=== PATIENT | female | born 1990 | race Caucasian/White ===

== ENCOUNTER 2017-02-11 20:17 | Emergency (ER) | payer MEDICAID ==
--- NOTE | 2017-02-11 20:20 | EDPHY ---
H & P HPI/ROS: HPI CHIEF COMPLAINT: Left shoulder pain, worse with movement. HISTORY OF PRESENT ILLNESS: This patient is a 18-year-old female otherwise healthy no significant medical history she presents emergency room with 24 hours left shoulder pain. She does not recall an injury but she thinks she may have slept on it wrong. She has pain with range of motion of the left shoulder. Especially with abduction of the arm. She is otherwise neurovascularly intact. No fever. No chest pain no shortness of breath. No lymphadenopathy or swelling. No arm swelling. Pain is located anterior left shoulder. Worse with movement she has not take any pain medicine for this. She decided come the emergency room for evaluation. No other injuries. Past Medical History: No significant medical history Past Surgical History: No significant surgical history Social History: Denies daily use drugs alcohol tobacco products Family History: Noncontributory ROS REVIEW OF SYSTEMS: A comprehensive 10 point review of systems is otherwise negative aside from elements mentioned in the history of present illness. Exam Constitutional triage nursing summary reviewed, vital signs reviewed, awake/ alert. Eyes normal conjunctivae and sclera, EOMI, PERRLA. HENT normal inspection, atraumatic, moist mucus membranes, no epistaxis, neck supple/ no meningismus, no raccoon eyes. Respiratory clear to auscultation bilaterally, normal breath sounds, no respiratory distress, no wheezing. Cardiovascular rate normal, regular rhythm, no murmur, no edema, distal pulses normal. Gastrointestinal soft, non-tender, no rebound, no guarding, normal bowel sounds, no distension, no pulsatile mass. Genitourinary no CVA tenderness. Musculoskeletal left arm: Neurovascular intact. Good radial pulse. Good cap refill. Full range of motion of the left arm. However with abduction left arm against resistance she has left lateral shoulder pain. Axillary nerves intact. No swelling of the arm. No lymphedema. No adenopathy. No rash. no midline vertebral tenderness, full range of motion, no calf swelling, no tenderness of extremities, no meningismus, good pulses, neurovascularly intact. Skin pink, warm, & dry, no rash, skin atraumatic. Neurologic awake, alert and oriented x 3, AAOx3, moves all 4 extremities equally, motor intact, sensory intact, CN II-XII intact, normal cerebellar, normal vision, normal speech. Psychiatric normal mood/affect. Heme/Lymph/Immune no lymphadenopathy. Differential Diagnosis: Includes but is not limited to in a particular order, shoulder strain, shoulder sprain, rotator cuff injury, bony abnormality Medical Decision Making: Plan for this patient x-ray left shoulder. Ibuprofen. Re-evaluation: ED x-ray left shoulder: Negative for acute disease or fracture. Image interpreted by myself. [id number]: X-ray reviewed. No fracture. No bony abnormality. Recommend ice, anti- inflammatory pain med. Follow up primary care doctor return to ER if worse. Source: Patient Constitutional: Initial Vital Signs Temperature (C) 36.5 C 02/11/17 20:22 Heart Rate 86 02/11/17 20:22 Respiratory Rate 14 02/11/17 20:22 Blood Pressure 125/77 H 02/11/17 20:22 O2 Sat (%) 97 02/11/17 20:22 O2 Delivery Mode Room Air Allergies/Adverse Reactions: No Known Allergies Allergy (Unverified 02/11/17 20:22) Home Medications: Medication Instructions Recorded NK [No Known Home Meds] 02/11/17 Medical Decision Making - Data Points Medications Given: Discontinued Medications Ibuprofen (Motrin) 800 mg PO EDNOW ONE Stop: 02/11/17 20:34 Last Admin: 02/11/17 20:39 Dose: 800 mg Departure - Departure Disposition: Home, Routine, Self-Care Clinical Impression: Left shoulder strain Qualifiers: Encounter type: initial encounter Qualified Code(s): S46.912A - Strain of unspecified muscle, fascia and tendon at shoulder and upper arm level, left arm , initial encounter Condition: Good Instructions: Arthralgia (ED), Shoulder Pain (ED) Additional Instructions: 1. Ice your shoulder. 2. Take anti-inflammatory pain medicine for pain control Tylenol Motrin. 3. This should get better over the next 72 hours. Return emergency room if there is worsening symptoms questions or concerns. Referrals: NONE *PRIMARY CARE P,. [Primary Care Provider] - As per Instructions
[2017-02-11 20:27] VITALS: BP 125/77; PULSE 86; RESP 14; TEMP 97.7; O2SAT 97
[2017-02-11] MEDS ORDERED: IBUPROFEN 200 MG TAB PO ONE (20:33)
== END 2017-02-11 21:34 | disposition home or self-care (01) ==
LOC: CED 20:17
DX: S46.912A Strain of unspecified muscle, fascia and tendon at shoulder and upper arm level, left arm, initial encounter (principal); X58.XXXA Exposure to other specified factors, initial encounter
CPT/HCPCS: 73030-PO

== ENCOUNTER 2017-05-20 07:00 | Emergency (ER) | payer MEDICAID ==
[2017-05-20] MEDS ORDERED: NS 1,000 ML IV ONE (07:07)
[2017-05-20 07:12] VITALS: RESP 18; TEMP 97.5
--- NOTE | 2017-05-20 07:21 | EDPHY ---
H & P Stated Complaint: N/V STARTED THIS AM, VX4, DENIES ABD PAIN Time Seen by Provider: 05/20/17 07:04 HPI/ROS: This patient arrives by private vehicle for evaluation of vomiting and crampy abdominal discomfort. Her symptoms started at 3:00 a.m. this morning with vomiting and concurrent onset of generalized abdominal cramping. She has vomited 4 times since onset with yellow appearing emesis and ongoing nausea currently. She reports that the generalized abdominal cramping is 3/10 in intensity. She has been unable tolerate p. o. fluids since the onset of vomiting. She had 1 episode of diarrhea described as loose and watery this morning. The symptoms follow a one-week history of coryza and occasional cough. She reports that the coryza and cough is improving in nearly resolved. ROS: No fevers or chills. No fatigue. No other constitutional complaints HEENT: No sore throat. No ear pain. No sinus pain. Pulmonary: Her mild cough is rare and dry with no sputum production, or hemoptysis. No shortness of breath. No pleuritic pain. Cardiovascular: No lightheadedness. No chest pain GI: No abdominal bloating. No hematemesis or coffee-ground emesis. No bloody stools. : Last menstrual period was normal timing last but lasted longer than usual. No dysuria, frequency urgency. No vaginal discharge. Integumentary: No skin rash 10 point ROS is otherwise negative. 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 - Physical Exam Exam: General Appearance: Alert, no distress. Eyes: Pupils equal and round no pallor or injection. ENT, Mouth: Mucous membranes dry Respiratory: There are no retractions, lungs are clear to auscultation. Cardiovascular: Regular rate and rhythm. No murmur gallop or rub Gastrointestinal: Normoactive, soft, nontender. No organomegaly Back: No CVA tenderness Neurological: GCS 15 with no focal deficits Skin: Warm and dry, no rashes. Musculoskeletal: Neck is supple nontender. Extremities are symmetrical, full range of motion. Psychiatric: Mood and affect normal DIFFERENTIAL DIAGNOSIS: After history and physical exam differential diagnosis was considered for likely a viral gastroenteritis given concurrent mild URI symptoms. , ectopic , urinary tract infection, food poisoning Constitutional: Initial Vital Signs Temperature (C) 36.4 C 05/20/17 07:09 Heart Rate 95 05/20/17 07:09 Respiratory Rate 18 05/20/17 07:09 Blood Pressure 147/94 H 05/20/17 07:09 O2 Sat (%) 95 05/20/17 07:09 O2 Delivery Mode Room Air Allergies/Adverse Reactions: No Known Allergies Allergy (Unverified 05/20/17 07:07) Home Medications: Medication Instructions Recorded Cephalexin [Keflex (*)] 500 mg PO QID #28 cap 05/20/17 Ondansetron Odt [Zofran Odt] 4 - 8 mg PO Q4PRN PRN #4 tab 05/20/17 Medical Decision Making ED Course/Re-evaluation: IV normal saline bolus Zofran IV Zofran Repeated x1 with further relief of nausea. She tolerated p.o. intake thereafter without emesis. A review of labs reveals mild leukocytosis, normal metabolic panel, negative and urinalysis consistent with UTI. Discussion: This patient may have early pyelonephritis given UTI, vomiting and mild leukocytosis. I counseled her regarding this. Other possibilities in the differential diagnosis would be viral gastroenteritis complicated by cystitis. I offered the patient IV antibiotics given recent vomiting and other findings. Patient prefers to try oral Keflex given her symptomatic improvement in desire to proceed home. She is not manifest septic physiology or have any other red flag findings after treatment so think this is reasonable approach. She is discharged home with normal vitals feeling improved. Will treat her with Keflex for 7 days. Zofran in addition if needed for any ongoing nausea or vomiting. I provided contact information for an outpatient primary physician ( on-call) for her to follow up with and the patient understands need to return emergency department should she have any worsening of her symptoms despite the treatment plan - Data Points Laboratory Results: Laboratory Results 05/20/17 07:15 05/20/17 07:15 05/20/17 05/20/17 05/20/17 08:05 07:15 07:15 WBC RBC Hgb Hct MCV MCH MCHC RDW Plt Count MPV Neut % (Auto) Lymph % (Auto) Tillman % (Auto) Eos % (Auto) Baso % (Auto) Nucleat RBC Rel Count Absolute Neuts (auto) Absolute Lymphs (auto) Absolute Monos (auto) Absolute Eos (auto) Absolute Basos (auto) Absolute Nucleated RBC Immature Gran % Immature Gran # Sodium 145 mEq/L H mEq/L (134-144) Potassium 4.2 mEq/L mEq/L (3.5-5.2) Chloride 105 mEq/L mEq/L (97-110) Carbon Dioxide 22 mEq/l mEq/l (22-31) Anion Gap 18 mEq/L H mEq/L (8-16) BUN 14 mg/dL mg/dL (7-23) Creatinine 0.6 mg/dL mg/dL (0.6-1.0) Estimated GFR > 60 Glucose 98 mg/dL mg/dL (70-100) Calcium 9.2 mg/dL mg/dL (8.5-10.4) Beta HCG, Qual NEGATIVE Urine Color YELLOW Urine Appearance CLEAR Urine pH 8.5 H (5.0-7.5) Ur Specific Fountain 1.015 (1.002-1.030) Urine Protein 1+ H (NEGATIVE) Urine Ketones NEGATIVE (NEGATIVE) Urine Blood NEGATIVE (NEGATIVE) Urine Nitrate NEGATIVE (NEGATIVE) Urine Bilirubin NEGATIVE (NEGATIVE) Urine Urobilinogen 0.2 EU EU (0.2-1.0) Ur Leukocyte Esterase TRACE H (NEGATIVE) Urine RBC 3-5 /hpf H /hpf (0-3) Urine WBC 5-10 /hpf H /hpf (0-3) Ur Epithelial Cells 2+ /lpf H /lpf (NONE-1+) Urine Bacteria 2+ /hpf H /hpf (NONE SEEN) Urine Mucus 2+ /lpf H /lpf (NONE-1+) Urine Glucose NEGATIVE (NEGATIVE) 05/20/17 07:15 WBC 11.51 10^3/uL H 10^3/uL (3.80-9.50) RBC 4.42 10^6/uL 10^6/uL (4.18-5.33) Hgb 13.9 g/dL g/dL (12.6-16.3) Hct 40.2 % % (38.0-47.0) MCV 91.0 fL fL (81.5-99.8) MCH 31.4 pg pg (27.9-34.1) MCHC 34.6 g/dL g/dL (32.4-36.7) RDW 12.3 % % (11.5-15.2) Plt Count 234 10^3/uL 10^3/uL (150-400) MPV 11.3 fL fL (8.7-11.7) Neut % (Auto) 69.4 % % (39.3-74.2) Lymph % (Auto) 22.8 % % (15.0-45.0) Tillman % (Auto) 6.1 % % (4.5-13.0) Eos % (Auto) 0.8 % % (0.6-7.6) Baso % (Auto) 0.6 % % (0.3-1.7) Nucleat RBC Rel Count 0.0 % % (0.0-0.2) Absolute Neuts (auto) 7.98 10^3/uL H 10^3/uL (1.70-6.50) Absolute Lymphs (auto) 2.63 10^3/uL 10^3/uL (1.00-3.00) Absolute Monos (auto) 0.70 10^3/uL 10^3/uL (0.30-0.80) Absolute Eos (auto) 0.09 10^3/uL 10^3/uL (0.03-0.40) Absolute Basos (auto) 0.07 10^3/uL 10^3/uL (0.02-0.10) Absolute Nucleated RBC 0.00 10^3/uL 10^3/uL (0-0.01) Immature Gran % 0.3 % % (0.0-1.1) Immature Gran # 0.04 10^3/uL 10^3/uL (0.00-0.10) Sodium Potassium Chloride Carbon Dioxide Anion Gap BUN Creatinine Estimated GFR Glucose Calcium Beta HCG, Qual Urine Color Urine Appearance Urine pH Ur Specific Fountain Urine Protein Urine Ketones Urine Blood Urine Nitrate Urine Bilirubin Urine Urobilinogen Ur Leukocyte Esterase Urine RBC Urine WBC Ur Epithelial Cells Urine Bacteria Urine Mucus Urine Glucose Medications Given: Discontinued Medications Cephalexin HCl (Keflex) 500 mg PO EDNOW ONE PRN Reason: Protocol Stop: 05/20/17 08:33 Last Admin: 05/20/17 08:36 Dose: 500 mg Sodium Chloride (Ns) 1,000 mls @ 0 mls/hr IV EDNOW ONE; Wide Open PRN Reason: Protocol Stop: 05/20/17 07:08 Last Admin: 05/20/17 07:28 Dose: 1,000 mls Ondansetron HCl (Zofran) 4 mg IVP EDNOW ONE Stop: 05/20/17 07:23 Last Admin: 05/20/17 07:28 Dose: 4 mg Ondansetron HCl (Zofran) 4 mg IVP EDNOW ONE Stop: 05/20/17 08:33 Last Admin: 05/20/17 08:36 Dose: 4 mg Departure - Departure Disposition: Home, Routine, Self-Care Clinical Impression: Dehydration Urinary tract infection Qualifiers: Urinary tract infection type: acute pyelonephritis Qualified Code(s): N10 - Acute pyelonephritis Vomiting Qualifiers: Vomiting type: unspecified Vomiting Intractability: non-intractable Nausea presence: with nausea Qualified Code(s): R11.2 - Nausea with vomiting, unspecified Condition: Good Instructions: Urinary Tract Infection in Women (ED), Acute Nausea and Vomiting (ED) Additional Instructions: Diagnoses: 1. UTI 2. Vomiting 3. Dehydration Plan: Drink plenty of fluids Zofran for nausea or vomiting if needed Keflex antibiotic Follow up with primary care physician listed below for recheck for any ongoing symptoms despite the plan. Return for any significant worsening despite treatment plan Referrals: NONE *PRIMARY CARE P,. [Primary Care Provider] - As per Instructions Alea Cartagena MD [Medical Doctor] - As per Instructions Prescriptions: Cephalexin [Keflex (*)] 500 mg PO QID #28 cap Ondansetron Odt [Zofran Odt] 4 - 8 mg PO Q4PRN PRN #4 tab PRN Reason: Vomiting
[2017-05-20] MEDS ORDERED: ONDANSETRON 4 MG/2 ML VIAL IVP ONE ×2 (07:22→08:32)
[2017-05-20 07:28] LABS: % IMMATURE GRANULYOCYTES 0.3 % (0.0-1.1); ABSOLUTE IMMATURE GRANULOCYTES 0.04 10^3/uL (0.00-0.10); ADD DIFF? NO; ADD MORPH? NO; ADD SCAN? NO; ATYPICAL LYMPHOCYTE FLAG 10 (0-99); FRAGMENT RBC FLAG 0 (0-99); HEMATOCRIT 40.2 % (38.0-47.0); HEMOGLOBIN 13.9 g/dL (12.6-16.3); LEFT SHIFT FLG 0 (0-99); LIPEMIA HEMOLYSIS FLAG 90 (0-99); MEAN CELL HEMOGLOBIN 31.4 pg (27.9-34.1); MEAN CELL HEMOGLOBIN CONCENTR. 34.6 g/dL (32.4-36.7); MEAN PLATELET VOLUME 11.3 fL (8.7-11.7); PLATELET CLUMPS FLAG 0 (0-99); PLATELET COUNT 234 10^3/uL (150-400); RED BLOOD CELL COUNT 4.42 10^6/uL (4.18-5.33); RED CELL DISTRIBUTION WIDTH 12.3 % (11.5-15.2)
[2017-05-20 07:47] LABS: ANION GAP 18 mEq/L (8-16); CALCIUM 9.2 mg/dL (8.5-10.4); CARBON DIOXIDE 22 mEq/l (22-31); CHLORIDE 105 mEq/L (97-110); CREATININE 0.6 mg/dL (0.6-1.0); GLOMERULAR FILTRATION RATE > 60; GLUCOSE 98 mg/dL (70-100); POTASSIUM 4.2 mEq/L (3.5-5.2); SODIUM 145 mEq/L (134-144)
[2017-05-20 08:11] LABS: COLOR YELLOW; LEUKOCYTE ESTERASE,URINE TRACE (NEGATIVE); NITRITE,URINE NEGATIVE (NEGATIVE); PH,URINE 8.5 (5.0-7.5)
[2017-05-20 08:24] LABS: BACTERIA 2+ /hpf (NONE SEEN); MUCUS 2+ /lpf (NONE-1+)
[2017-05-20] MEDS ORDERED: CEPHALEXIN 500 MG CAP PO ONE (08:32)
[2017-05-20 14:50] VITALS: BP 129/90; PULSE 80; O2SAT 96
== END 2017-05-20 09:13 | disposition home or self-care (01) ==
LOC: CED 07:00
DX: N10 Acute pyelonephritis (principal); E86.0 Dehydration; B96.89 Other specified bacterial agents as the cause of diseases classified elsewhere; F17.200 Nicotine dependence, unspecified, uncomplicated; E86.9 Volume depletion, unspecified
CPT/HCPCS: 80048-PO; 81003-PO; 81015-PO; 84703-PO; 85025-PO; 96374; J2405